=== PATIENT | female | born 1970 ===

== ENCOUNTER 2018-01-19 12:08 | Emergency (ER) | payer OTHER ==
[~2018-01-19] VITALS: Ht 165.1 cm; Wt 63.5 kg
[~2018-01-19 12:08] MED LIST: ORPH100T PO
== END 2018-01-19 19:54 | disposition home or self-care (01) ==
LOC: ER 12:08
DX: R42 Dizziness and giddiness (principal)

== ENCOUNTER 2018-04-08 01:04 | Emergency (ER) | payer OTHER ==
[~2018-04-08] VITALS: Ht 165.1 cm; Wt 66.7 kg
[2018-04-08] MEDS ORDERED: TESSALON PERLE100 MG PO (11:22)
[2018-04-08] MEDS ORDERED: MEDROLPACK PO (11:22)
[2018-04-08] MEDS ORDERED: SYMBICORT 16010.2 GM IH (11:22)
== END 2018-04-08 11:54 | disposition home or self-care (01) ==
LOC: ER 01:04
DX: J40 Bronchitis, not specified as acute or chronic (principal)